=== PATIENT | female | born 1995 | race Caucasian/White ===

== ENCOUNTER 2018-04-10 23:02 | Emergency (ER) | payer MEDICARE ==
[~2018-04-10] VITALS: Ht 167.6 cm; Wt 59.1 kg
[2018-04-10 23:19] VITALS: Ht 167.6 cm; Wt 59.1 kg
[2018-04-11] MEDS ORDERED: AUGMENTIN 875-11 TAB PO (01:54)
[2018-04-11 02:24] VITALS: BP 114/78
== END 2018-04-11 02:24 | disposition home or self-care (01) ==
LOC: D.ER 23:02
DX: S61.412A Laceration without foreign body of left hand, initial encounter (principal); W54.0XXA Bitten by dog, initial encounter; Y93.89 Activity, other specified; Y92.019 Unspecified place in single-family (private) house as the place of occurrence of the external cause